=== PATIENT | female | born 2005 | race Hispanic/Latino ===

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

== ENCOUNTER 2024-03-12 08:26 | Day surgery (SDC) | payer OTHER ==
[2024-03-12] MEDS ORDERED: Acetaminophen 500 MG TAB ONE (08:39)
[2024-03-12] MEDS: Acetaminophen 500 MG TAB PO SCH (08:41)
[2024-03-12] MEDS: Iron Sucrose Complex 500 MG in Sodium Chloride 0.9% 250 ML 250 ML IVPB SCH (09:20)
[2024-03-12 14:40] VITALS: BP 128/83; TEMP 98.1
== END 2024-03-12 14:40 | disposition home or self-care (01) ==
LOC: ONC/OP 08:26
PROVIDERS: ATTEND Family Medicine
DX: O99.013 Anemia complicating pregnancy, third trimester (principal); Z3A.00 Weeks of gestation of pregnancy not specified
CPT/HCPCS: 96365; 96366; J1756; J7050

== ENCOUNTER 2024-03-21 11:02 | Outpatient (CLI) | payer OTHER | END 2024-03-21 11:03 | disposition home or self-care (01) | LOC: BICULT 11:02 | PROVIDERS: ATTEND Family Medicine | DX: N63.13 Unspecified lump in the right breast, lower outer quadrant (principal) ==